=== PATIENT | female | born 1985 | race Caucasian/White ===

== ENCOUNTER → 2016-10-19 | Outpatient (CLI) | payer BC | LOC: MW.CHFP 13:38 | PROVIDERS: ATTEND Family Medicine | DX: J02.9 Acute pharyngitis, unspecified (principal) | CPT/HCPCS: 87081; 87880 ==

== ENCOUNTER → 2016-11-01 | Outpatient (CLI) | payer BC ==
--- NOTE | 2016-11-02 09:14 | CR ---
EXAMINATION: Left ankle HISTORY: Injury COMPARISON: None TECHNIQUE: 2 views FINDINGS/IMPRESSION: No acute osseous abnormality, dislocation, or fracture. Bone mineralization and joint spaces appear normal. The ankle mortise and talar dome appear intact.
== END ==
LOC: MW.CHFP 16:10
PROVIDERS: ATTEND Family Medicine
DX: S99.912A Unspecified injury of left ankle, initial encounter (principal)
CPT/HCPCS: 73600-26-LT; 73600-LT

== ENCOUNTER 2019-11-25 09:36 | Day surgery (SDC) | payer BC ==
[2019-11-24 09:09] LABS: BLOOD UREA NITROGEN,BUN 14 mg/dL (7.0-18.0); CARBON DIOXIDE,CO2 21.1 mmol/L (21.0-32.0); CHLORIDE,CL 106 mmol/L (98-107); GLUCOSE RANDOM 111 mg/dL (74-106); POTASSIUM,K 3.9 mmol/L (3.5-5.1); SODIUM,NA 139 mmol/L (136-145)
[~2019-11-25 09:36] MED LIST: Lactated Ringers 1,000 ML IV SCH
--- NOTE | 2019-11-25 10:35 | PCM.PREANE ---
Preanesthetic Assessment - Anesthesia/Transfusion/Family Hx Anesthesia History: Prior Anesthesia Without Reaction Family History of Anesthesia Reaction: No Transfusion History: No Prior Transfusion(s) - Review of Systems General: No Symptoms Pulmonary: No Symptoms Cardiovascular: No Symptoms Gastrointestinal: No Symptoms Neurological: No Symptoms Other: Reports: None - Physical Assessment NPO Status Date: 11/24/19 Height: 5 ft 6 in Weight: 96.615 kg ASA Class: 2 Mental Status: Alert & Oriented x3 Airway Class: Mallampati = 1 Dentition: Reports: Normal Dentition ROM/Head Extension: Full Lungs: Clear to Auscultation, Normal Respiratory Effort Cardiovascular: Regular Rate, Regular Rhythm - Lab Values: Laboratory Last Values WBC 12.38 K/uL (4.0-11.0) H 11/24/19 08:28 RBC 5.03 M/uL (4.30-5.90) 11/24/19 08:28 Hgb 15.3 g/dL (12.0-16.0) 11/24/19 08:28 Hct 44.1 % (36.0-46.0) 11/24/19 08:28 MCV 87.7 fL (80.0-98.0) 11/24/19 08:28 MCH 30.4 pg (27.0-32.0) 11/24/19 08:28 MCHC 34.7 g/dL (31.0-37.0) 11/24/19 08:28 RDW Std Deviation 41.7 fl (28.0-62.0) 11/24/19 08:28 RDW Coeff of Arleen 13 % (11.0-15.0) 11/24/19 08:28 Plt Count 257 K/uL (150-400) 11/24/19 08:28 MPV 10.10 fL (7.40-12.00) 11/24/19 08:28 Nucleated RBC % 0.0 /100WBC 11/24/19 08:28 Nucleated RBCs # 0 K/uL 11/24/19 08:28 Sodium 139 mmol/L (136-145) 11/24/19 08:28 Potassium 3.9 mmol/L (3.5-5.1) 11/24/19 08:28 Chloride 106 mmol/L (98-107) 11/24/19 08:28 Carbon Dioxide 21.1 mmol/L (21.0-32.0) 11/24/19 08:28 BUN 14 mg/dL (7.0-18.0) 11/24/19 08:28 Creatinine 1.0 mg/dL (0.6-1.0) 11/24/19 08:28 Est Cr Clr Drug Dosing 74.21 mL/min 11/24/19 08:28 Estimated GFR (MDRD) > 60.0 ml/min 11/24/19 08:28 Glucose 111 mg/dL (74-106) H 11/24/19 08:28 Calcium 8.8 mg/dL (8.5-10.1) 11/24/19 08:28 Total Bilirubin 1.2 mg/dL (0.2-1.0) H 11/24/19 08:28 AST 25 IU/L (15-37) 11/24/19 08:28 ALT 47 IU/L (14-63) 11/24/19 08:28 Alkaline Phosphatase 76 U/L (46-116) 11/24/19 08:28 Total Protein 6.9 g/dL (6.4-8.2) 11/24/19 08:28 Albumin 3.9 g/dL (3.4-5.0) 11/24/19 08:28 Globulin 3.0 g/dL (2.6-4.0) 11/24/19 08:28 Albumin/Globulin Ratio 1.3 (0.9-1.6) 11/24/19 08:28 Urine HCG, Qual NEGATIVE (NEGATIVE) 11/24/19 08:32 SARS Virus RNA (PCR) NEGATIVE (NEGATIVE) 11/24/19 08:20 Blood Type B POSITIVE 11/24/19 08:30 Antibody Screen NEGATIVE 11/24/19 08:30 - Allergies Allergies/Adverse Reactions: Allergies Allergy/AdvReac Type Severity Reaction Status Date / Time animal dander Allergy Sneezing Verified 11/19/19 12:42 nickel Allergy Rash Verified 11/19/19 12:42 - Blood Blood Available: No - Anesthesia Plan Pre-Op Medication Ordered: None - Acknowledgements Anesthesia Type Planned: Spinal Pt an Appropriate Candidate for the Planned Anesthesia: Yes Alternatives and Risks of Anesthesia Discussed w Pt/Guardian: Yes Pt/Guardian Understands and Agrees with Anesthesia Plan: Yes Additional Comments: PMH: smoker PLAN: spinal (saddle) block PreAnesthesia Questionnaire HEENT History: Reports: Allergic Rhinitis, Other (See Below) Other HEENT History: wears glasses/contacts Cardiovascular History: Reports: None Respiratory History: Reports: None Gastrointestinal History: Reports: GERD Genitourinary History: Reports: None PRESS TENDER History: Reports: Other (See Below) Other OB/BYN History: HPV Musculoskeletal History: Reports: Fracture Neurological History: Reports: None Psychiatric History: Reports: None Endocrine/Metabolic History: Reports: Obesity/BMI 30+ Hematologic History: Reports: None Immunologic History: Reports: None Oncologic (Cancer) History: Reports: None Dermatologic History: Reports: None - Past Surgical History Head Surgeries/Procedures: Reports: None HEENT Surgical History: Reports: Naso-Sinus Surgery, Oral Surgery Other HEENT Surgeries/Procedures: surgery for repair of fx nose Cardiovascular Surgical History: Reports: None Respiratory Surgical History: Reports: None GI Surgical History: Reports: None Female Surgical History: Reports: None Endocrine Surgical History: Reports: None Neurological Surgical History: Reports: None Musculoskeletal Surgical History: Reports: Other (See Below) Other Musculoskeletal Surgeries/Procedures:: surgical tx for fx left hand and rt ankle Oncologic Surgical History: Reports: None Dermatological Surgical History: Reports: None - SUBSTANCE USE Smoking Status *Q: Current Every Day Smoker Tobacco Use Within Last Twelve Months: Cigarettes - HOME MEDS Home Medications: Home Meds Calcium Carbonate [Tums] 1 tab.chew CHEW ASDIRECTED PRN 11/19/19 [History] Cetirizine HCl [Zyrtec] 1 tab PO DAILY 11/19/19 [History] Multivitamin [Daily Multiple Vitamin] 1 tab PO DAILY 11/19/19 [History] medroxyPROGESTERone Acetate [Depo-Provera] 1 injection IM ASDIRECTED 11/19/19 [ History] - CURRENT (IN HOUSE) MEDS Current Meds: Current Medications Lactated Ringer's (Ringers, Lactated) 1,000 mls @ 125 mls/hr IV ASDIRECTED CJ
[2019-11-25] MEDS ORDERED: Chloroprocaine 10 MG/ML 5 ML Amp ONE (11:09)
[2019-11-25] MEDS ORDERED: Ondansetron 4 MG/2 ML SDV ONE (11:10)
[2019-11-25] MEDS ORDERED: Midazolam 1 MG/ML 2 ML SDV ONE (11:10)
[2019-11-25] MEDS ORDERED: Lidocaine 2% 5 ML SDV ONE (11:10)
[2019-11-25] MEDS ORDERED: Propofol 200 MG/20 ML SDV ONE ×2 (11:10→11:51)
[2019-11-25] MEDS ORDERED: fentaNYL 100 MCG/2 ML SDV IVPUSH PRN (12:35)
[2019-11-25] MEDS ORDERED: Ketorolac 30 MG/ML SDV ONE (12:48)
[2019-11-25] MEDS ORDERED: Acetaminophen/HYDROcodone 325-5 MG Tab PO PRN (12:56)
--- NOTE | 2019-11-25 13:16 | PCM.POSTAN ---
POST ANESTHESIA ASSESSMENT - MENTAL STATUS Mental Status: Alert, Oriented - VITAL SIGNS Vital Signs: Last Vital Signs Temp 36.6 C 11/25/19 12:55 Pulse 64 11/25/19 13:10 Resp 22 H 11/25/19 13:10 BP 114/69 11/25/19 13:10 Pulse Ox 99 11/25/19 13:10 - RESPIRATORY Respiratory Status: Respiratory Rate WNL, Airway Patent, O2 Saturation Stable - CARDIOVASCULAR CV Status: Pulse Rate WNL, Blood Pressure Stable - GASTROINTESTINAL GI Status: No Symptoms - PAIN Pain Score: 0 - POST OP HYDRATION Hydration Status: Adequate & Stable
--- NOTE | 2019-11-25 13:32 | PCM48HPAN ---
Post Anesthesia Note - EVALUATION WITHIN 48HRS OF ANESTHETIC Vital Signs in Normal Range: Yes Patient Participated in Evaluation: Yes Respiratory Function Stable: Yes Airway Patent: Yes Cardiovascular Function Stable: Yes Hydration Status Stable: Yes Pain Control Satisfactory: Yes Nausea and Vomiting Control Satisfactory: Yes Mental Status Recovered: Yes Vital Signs: Last Vital Signs Temp 97.5 F 11/25/19 13:17 Pulse 66 11/25/19 13:17 Resp 14 11/25/19 13:17 BP 118/76 11/25/19 13:17 Pulse Ox 99 11/25/19 13:17
--- NOTE | 2019-11-25 22:27 | OR ---
SURGEON: Surya Gilliland MD DATE OF PROCEDURE: 11/25/2019 INDICATION FOR PROCEDURE: A 33-year-old with history of cervical dysplasia. She had ASCUS Pap smear with positive HPV. She had a colposcopy with biopsies, which showed TAYLA 2. After reviewing options with her, she desires to proceed with LEEP procedure. PREOPERATIVE DIAGNOSIS: Cervical intraepithelial neoplasia 2 cervical dysplasia. POSTOPERATIVE DIAGNOSIS: Cervical intraepithelial neoplasia 2 cervical dysplasia. PROCEDURE PERFORMED: Colposcopy, Loop electrocautery excision procedure. ESTIMATED BLOOD LOSS: 10 mL. FINDINGS: Mild acetowhite changes noted along the 11 o'clock to 2 o'clock area of the cervix and the 4 to 6 o'clock area. DESCRIPTION OF THE PROCEDURE: The patient was taken to the operating room. Spinal anesthesia was applied. The patient was placed in dorsal lithotomy position and draped in sterile fashion. A coated speculum was placed in the vagina. The cervix and vagina were normal appearing. Colposcopy was performed. Mild acetowhite changes were noted from 11 o'clock to 2 o'clock area and 4 to 6 o'clock area. Transformation zone was seen. Lugol solution was applied to the cervix and the same areas did not have staining. The attention was then turned to the LEEP procedure. 10 mL of 1% lidocaine with epinephrine was injected circumferentially around the cervix. A 20 mm x 10 mm loop was applied to the ectocervix and a portion was removed including the endocervix. 2-0 Vicryl suture was used to tag the 12 o'clock position of the specimen and sent to Pathology. The ball cautery was used to cauterize the areas of bleeding. Monsel solution was applied over the cervix. Hemostasis was confirmed. She tolerated the procedure well and was taken off lithotomy position. She was transferred to recovery room in stable condition. JAILENE / BATSHEVA /[id number] FRANCISCO
== END 2019-11-25 14:07 | disposition home or self-care (01) ==
LOC: MW.SDS 09:36
PROVIDERS: ATTEND Obstetrics & Gynecology
DX: N87.1 Moderate cervical dysplasia (principal); E66.9 Obesity, unspecified; K21.9 Gastro-esophageal reflux disease without esophagitis; F17.210 Nicotine dependence, cigarettes, uncomplicated; Z11.59 Encounter for screening for other viral diseases; Z79.899 Other long term (current) drug therapy; Z68.35 Body mass index [BMI] 35.0-35.9, adult
CPT/HCPCS: 36415; 57460; 80053; 81025; 85027; 86850; 86900; 86901; 87635; 88307; J1885; J2001; J2250; J2400; J2405; J2704; J7120; 00940; U0002

== ENCOUNTER 2022-12-21 07:48 | Day surgery (SDC) | payer BC ==
[~2022-12-21 07:48] MED LIST changes: +Scopolamine 1.5 MG Transdermal Patch TOP ONE; +Sodium Chloride 0.9% 10 ML Syringe FLUSH PRN; +Sodium Chloride 0.9% 2.5 ML Syringe FLUSH PRN; +Sodium Chloride 0.9% 20 ML SDV IV PRN
[2022-12-21] MEDS ORDERED: Bupivacaine 0.5% 30 ML SDV ONE (08:39)
[2022-12-21] MEDS ORDERED: Rocuronium Bromide 50 MG/5 ML Syringe ONE (08:46)
[2022-12-21] MEDS ORDERED: Ondansetron 4 MG/2 ML SDV ONE (08:46)
[2022-12-21] MEDS ORDERED: Lidocaine 1% 5 ML VIAL ONE (08:46)
[2022-12-21] MEDS ORDERED: Dexamethasone 4 MG/ML 5 ML MDV ONE (08:46)
[2022-12-21] MEDS ORDERED: HYDROmorphone 1 MG/ML Syringe IVPUSH PRN (08:48)
[2022-12-21] MEDS ORDERED: droPERidol 5 MG/2 ML SDV IVPUSH PRN (08:48)
[2022-12-21] MEDS ORDERED: Ondansetron 4 MG/2 ML SDV IVPUSH PRN (08:48)
[2022-12-21] MEDS ORDERED: Albuterol 0.083% 2.5 MG/3 ML Neb Soln NEB PRN (08:48)
[2022-12-21] MEDS ORDERED: fentaNYL 50 MCG/ML SDV IVPUSH PRN (08:48)
[2022-12-21] MEDS ORDERED: Morphine 2 MG/ML SYRINGE IVPUSH PRN (08:48)
[2022-12-21] MEDS ORDERED: Naloxone 0.4 MG/ML SDV IVPUSH PRN (08:48)
[2022-12-21] MEDS ORDERED: Metoclopramide 10 MG/2 ML SDV IVPUSH PRN (08:48)
[2022-12-21] MEDS ORDERED: ceFAZolin 2 GM Vial ONE (08:54)
[2022-12-21] MEDS ORDERED: Propofol 200 MG/20 ML SDV ONE (08:55)
[2022-12-21] MEDS ORDERED: fentaNYL 100 MCG/2 ML SDV ONE (08:57)
[2022-12-21] MEDS ORDERED: Ropivacaine 0.5% 5 MG/ML 30 ML SDV ONE (08:59)
[2022-12-21] MEDS ORDERED: Magnesium Sulfate (4.06 MEQ/ML) 5 GM/10 ML SDV ONE (09:17)
[2022-12-21] MEDS ORDERED: Ketorolac 30 MG/ML SDV ONE (09:56)
[2022-12-21] MEDS ORDERED: Sugammadex Sodium 200 MG/2 ML VIAL ONE (09:56)
[2022-12-21] MEDS ORDERED: ceFAZolin 2 GM in Sodium Chloride 0.9% 50 ML IV ONE (11:52)
== END 2022-12-21 12:25 | disposition home or self-care (01) ==
LOC: MW.SDS 07:48
PROVIDERS: ATTEND Surgery
DX: K81.1 Chronic cholecystitis (principal); K82.8 Other specified diseases of gallbladder; F41.9 Anxiety disorder, unspecified; I10 Essential (primary) hypertension; E66.9 Obesity, unspecified; Z68.33 Body mass index [BMI] 33.0-33.9, adult; Z88.8 Allergy status to other drugs, medicaments and biological substances; Z79.899 Other long term (current) drug therapy; K21.9 Gastro-esophageal reflux disease without esophagitis; Z98.890 Other specified postprocedural states; Z68.30 Body mass index [BMI] 30.0-30.9, adult
CPT/HCPCS: 47562; 64488; 81025; J0690; J1100; J1885; J2704; J2795; J3010; J3475; J3490; J7030; J7120; J2405

== ENCOUNTER 2023-06-05 07:45 | Day surgery (SDC) | payer BC ==
[~2023-06-05 07:45] MED LIST changes: -Lactated Ringers 1,000 ML IV SCH; -Scopolamine 1.5 MG Transdermal Patch TOP ONE
[2023-06-05] MEDS ORDERED: propofoL 50 ML ONE (07:51)
[2023-06-05] MEDS ORDERED: Ondansetron 4 MG/2 ML SDV ONE (07:53)
[2023-06-05] MEDS ORDERED: Glycopyrrolate 0.2 MG/ML SDV ONE (07:53)
[2023-06-05] MEDS ORDERED: Ketamine 500 mg/10 ML MDV ONE (07:54)
[2023-06-05] MEDS: Lactated Ringers 1,000 ML IV SCH (08:29)
== END 2023-06-05 11:07 | disposition home or self-care (01) ==
LOC: MW.SDS 07:45
PROVIDERS: ATTEND Surgery
DX: K29.50 Unspecified chronic gastritis without bleeding (principal); K63.5 Polyp of colon; I10 Essential (primary) hypertension; F41.9 Anxiety disorder, unspecified; E66.9 Obesity, unspecified; Z68.28 Body mass index [BMI] 28.0-28.9, adult; F17.210 Nicotine dependence, cigarettes, uncomplicated; Z79.899 Other long term (current) drug therapy; Z98.890 Other specified postprocedural states; Z88.8 Allergy status to other drugs, medicaments and biological substances
CPT/HCPCS: 43239; 45380; 81025; J2405; J2704; J3490; J7120; 00813